=== PATIENT | female | born 1990 | race Hispanic/Latino ===

== ENCOUNTER 2021-09-09 17:25 | Emergency (ER) | payer OTHER | END 2021-09-09 18:46 | disposition home or self-care (01) | LOC: CSHERS 17:25 | DX: H60.91 Unspecified otitis externa, right ear (principal); J00 Acute nasopharyngitis [common cold] | CPT/HCPCS: 99282 ==

== ENCOUNTER 2023-02-23 07:24 | Emergency (ER) | payer OTHER, SELFPAY | END 2023-02-23 07:51 | disposition home or self-care (01) | LOC: CSHERS 07:24 | DX: M54.50 Low back pain, unspecified (principal) | CPT/HCPCS: 99283 ==